=== PATIENT | female | born 1965 | race African-American/Black ===

== ENCOUNTER 2020-09-17 21:39 | Emergency (ER) | payer MEDICAID, OTHER ==
[~2020-09-17] VITALS: Ht 162.6 cm; Wt 60.8 kg
[2020-09-17 23:26] LABS: Alanine Aminotransferase 23 U/L (13-56); Albumin 3.1 g/dL (3.4-5.0); Anion Gap 6 (5-15); Aspartate Aminotransferase 14 U/L (15-37); BUN/Creatinine Ratio 16.9; Blood Urea Nitrogen 14 mg/dL (7-18); Calcium 8.8 mg/dL (8.5-10.1); Carbon Dioxide 24 mmol/L (21-32); Chloride 103 mmol/L (98-107); GFR African American 92 mL/min; GFR Non-African American 76 mL/min; Glucose 302 mg/dL (74-106); Potassium 3.8 mmol/L (3.5-5.1); Sodium 133 mmol/L (136-145)
[2020-09-17 23:27] LABS: Basophils # (auto) 0 10 ^3/uL (0-0.2); Basophils % (auto) 0.5 % (0.0-2.0); Eosinophils # (auto) 0 10 ^3/uL (0-0.8); Eosinophils % (auto) 0.2 % (0.0-7.0); Hematocrit 33.3 % (36.0-46.0); Hemoglobin 11.1 g/dL (12.2-16.2); Lymphocytes # (auto) 0.7 10 ^3/uL (0.4-5.4); Lymphocytes % (auto) 12.7 % (10.0-50.0); Mean Corpuscular Hemoglobin 27.8 pg (28.0-32.0); Mean Corpuscular Hgb Conc. 33.2 g/dL (32.0-36.0); Mean Corpuscular Volume 83.7 fL (80.0-100.0); Monocytes # (auto) 0.3 10 ^3/uL (0-1.3); Neutrophils # (auto) 4.4 10 ^3/uL (1.6-8.6); Neutrophils % (auto) 80.6 % (37.0-80.0); Nucleated Red Blood Cells % 0.1 %; Red Blood Cells 3.98 10^6/uL (4.0-5.20); Red Cell Distribution Width 13.9 % (11.8-14.3); White Blood Cell 5.5 10^3/uL (4.4-10.8)
[2020-09-17 23:27] LABS: Urine Bacteria NONE SEEN /hpf (None Seen); Urine Blood 3+ /uL (Negative); Urine Mucus FEW (None Seen); Urine Specific Gravity 1.027 (1.001-1.035); Urine WBC 5 /hpf (0 - 5)
[2020-09-17 23:33] LABS: Alkaline Phosphatase 82 U/L (45-117); Bilirubin, Total 0.4 mg/dL (0.2-1.0); Total Protein 7.7 g/dL (6.4-8.2)
[2020-09-18] MEDS ORDERED: SODIUM CHLORIDE 0.9% 1,000 ML IV ONE (02:00)
[2020-09-18] MEDS ORDERED: ONDANSETRON HCL 4 MG/2 ML VIAL IV ONE (02:00)
[2020-09-18] MEDS ORDERED: ACETAMINOPHEN 325 MG TAB PO ONE (02:30)
[2020-09-18] MEDS ORDERED: cloNIDine HCL 0.1 MG TAB PO ONE (03:30)
[2020-09-18 05:45] VITALS: BP 143/65
== END 2020-09-18 05:37 | disposition home or self-care (01) ==
LOC: ER 21:41
DX: K52.9 Noninfective gastroenteritis and colitis, unspecified (principal); E86.0 Dehydration; D25.9 Leiomyoma of uterus, unspecified; E11.65 Type 2 diabetes mellitus with hyperglycemia; I10 Essential (primary) hypertension
CPT/HCPCS: 36415; 70450; 74176; 80053; 81001; 83690; 84484; 85025; 85049; 93005; 96361; 96374; 99285; J2405

== ENCOUNTER 2023-05-20 21:50 | Inpatient (IN) | payer MEDICAID, OTHER ==
[~2023-05-20] VITALS: Ht 162.6 cm; Wt 60.4 kg
[2023-05-20] MEDS: cloNIDine HCL 0.1 MG TAB PO ONE (22:56)
[2023-05-20 23:25] LABS: Basophils # (auto) 0.1 10 ^3/uL (0-0.2); Eosinophils # (auto) 0.2 10 ^3/uL (0-0.8); Eosinophils % (auto) 3.4 % (0.0-7.0); Hematocrit 28.6 % (36.0-46.0); Hemoglobin 9.1 g/dL (12.2-16.2); Lymphocytes # (auto) 1.9 10 ^3/uL (0.4-5.4); Lymphocytes % (auto) 36.5 % (10.0-50.0); Mean Corpuscular Hemoglobin 27.1 pg (28.0-32.0); Mean Corpuscular Volume 84.7 fL (80.0-100.0); Monocytes # (auto) 0.4 10 ^3/uL (0-1.3); Monocytes % (auto) 7.5 % (0.0-12.0); Neutrophils # (auto) 2.6 10 ^3/uL (1.6-8.6); Neutrophils % (auto) 51.6 % (37.0-80.0); Red Blood Cells 3.37 10^6/uL (4.0-5.20); Red Cell Distribution Width 14.3 % (11.8-14.3); White Blood Cell 5.1 10^3/uL (4.4-10.8)
[2023-05-20 23:35] LABS: INR 1.01 (0.9-1.15); Partial Thromboplastin Time 27.6 SEC (24.5-34.5); Prothrombin Time 10.6 sec (9.3-11.8)
[2023-05-20 23:37] LABS: Alanine Aminotransferase 23 U/L (7-40); Albumin 3.1 g/dL (3.2-4.8); Alkaline Phosphatase 88 U/L (46-116); Anion Gap 6 (5-15); Aspartate Aminotransferase 27 U/L (13-40); BUN/Creatinine Ratio 8.2 (10.0-20.0); Bilirubin, Total 0.4 mg/dL (0.2-1.0); Blood Urea Nitrogen 25 mg/dL (9-23); Calcium 8.8 mg/dL (8.7-10.4); Carbon Dioxide 24 mmol/L (20-30); Chloride 107 mmol/L (98-107); Glucose 285 mg/dL (74-106); Magnesium 1.8 mg/dL (1.6-2.6); Potassium 3.9 mmol/L (3.5-5.1); Sodium 137 mmol/L (136-145); Total Protein 5.8 g/dL (5.7-8.2)
[2023-05-21] VITALS (9 sets, daily range): BP systolic 201; BP diastolic 98; PULSE 49–92; RESP 14–20; TEMP 98.3; O2SAT 96–100
[2023-05-21] MEDS ORDERED: DEXTROSE (50%) 50ML SYRG IV PRN (01:15)
[2023-05-21] MEDS ORDERED: DOCUSATE SOD 100 MG CAP PO PRN (01:15)
[2023-05-21] MEDS ORDERED: NITROGLYCERIN 0.4 MG SL TAB SL PRN (01:15)
[2023-05-21] MEDS ORDERED: MORPHINE SULFATE INJ 2 MG/ml SYRG IV PRN (01:15)
[2023-05-21] MEDS: SODIUM CHLORIDE 0.9% 1,000 ML IV SCH (05:16)
[2023-05-21] MEDS: ENOXAPARIN SOD 60 MG/0.6 ML SYRINGE SC ONE (05:44)
[2023-05-21] MEDS: ASPirin-EC 325mg tab PO ONE (05:44)
[2023-05-21] MEDS: FUROSEMIDE 40 MG/4 ML VIAL IV ONE (06:15)
[2023-05-21] MEDS: MORPHINE SULFATE INJ 2 MG/ml SYRG IV PRN (06:15)
[2023-05-21] MEDS: ONDANSETRON HCL 4 MG/2 ML VIAL IV PRN (06:16)
[2023-05-21] MEDS: LEVALBUTEROL HCL 1.25 MG/3 ML NEB NEB SCH (06:47)
[2023-05-21] MEDS: ACCU-CHEK COMFORT CURVE STRIP VI SCH (07:00)
[2023-05-21] MEDS: InsuLIN REG 1unit/0.01ml Soln (100units/ml) SC SCH ×2 (09:10→22:00)
[2023-05-21] MEDS: HEPARIN SODIUM (PORCINE) 5000 UNITS/ML 1ML VIAL IV SCH (10:02)
[2023-05-21 11:54] LABS: Chloride 108 mmol/L (98-107); Sodium 140 mmol/L (136-145)
[2023-05-21 11:56] LABS: Anion Gap 5 (5-15); Calcium 8.6 mg/dL (8.5-10.1); Carbon Dioxide 27 mmol/L (20-30)
[2023-05-21 12:01] LABS: BUN/Creatinine Ratio 9.4 (10.0-20.0); Blood Urea Nitrogen 26 mg/dL (9-23); Glucose 202 mg/dL (74-106)
[2023-05-21 12:35] LABS: % Iron Saturation 12.8 % (15-50)
[2023-05-21] MEDS ORDERED: HYDR12.59 PO (14:55)
[2023-05-21] MEDS ORDERED: LOSA25TA15 PO (14:55)
[2023-05-21] MEDS ORDERED: METF-370 PO (14:55)
[2023-05-21] MEDS ORDERED: GLYB2.5T8 PO (14:55)
[2023-05-21] MEDS: IRON SUCROSE COMPLEX 100 ML IV SCH (15:11)
[2023-05-21] MEDS: FUROSEMIDE 100 MG/10ML VIAL IV SCH (15:12)
[2023-05-21 15:19] LABS: Erythrocyte Sedimentation Rate 48 mm/hr (0-20)
[2023-05-21 17:13] LABS: Urine Bacteria NONE SEEN /hpf (None Seen); Urine Blood TRACE /uL (Negative); Urine Clarity Clear (Clear); Urine Color Colorless (Yellow); Urine Protein, UAD 2+ (Negative); Urine Specific Gravity 1.007 (1.001-1.035); Urine Urobilinogen Normal (Negative); Urine WBC 1 /hpf (0 - 5)
[2023-05-21 17:16] LABS: Protein, Urine 226.7 mg/dL (0.0-11.9)
[2023-05-21 17:19] LABS: Creatinine, Urine 35.25 mg/dL (30.0-125.0); Urine Protein/Creatinine Ratio 6.43
[2023-05-22] VITALS (15 sets, daily range): BP systolic 132–169; BP diastolic 60–86; PULSE 67–92; RESP 16–20; TEMP 97.7–98.6; O2SAT 94–100
[2023-05-22] MEDS: HYDROcodone-ACET 5/325MG TAB PO PRN (01:02)
[2023-05-22 06:11] LABS: Basophils # (auto) 0 10 ^3/uL (0-0.2); Eosinophils # (auto) 0.2 10 ^3/uL (0-0.8); Hematocrit 23.1 % (36.0-46.0); Hemoglobin 7.4 g/dL (12.2-16.2); Lymphocytes # (auto) 1.6 10 ^3/uL (0.4-5.4); Mean Corpuscular Hemoglobin 27.1 pg (28.0-32.0); Mean Corpuscular Hgb Conc. 32.3 g/dL (32.0-36.0); Monocytes # (auto) 0.5 10 ^3/uL (0-1.3); Nucleated Red Blood Cells % 0.1 %
[2023-05-22 06:13] LABS: Lymphocytes % (auto) 37.6 % (10.0-50.0); Mean Corpuscular Volume 83.9 fL (80.0-100.0); Monocytes % (auto) 11.8 % (0.0-12.0); Neutrophils # (auto) 1.9 10 ^3/uL (1.6-8.6); Neutrophils % (auto) 45.6 % (37.0-80.0); Red Blood Cells 2.75 10^6/uL (4.0-5.20); Red Cell Distribution Width 14.5 % (11.8-14.3); White Blood Cell 4.2 10^3/uL (4.4-10.8)
[2023-05-22 06:30] LABS: Alanine Aminotransferase 17 U/L (7-40); Albumin 2.8 g/dL (3.2-4.8); Alkaline Phosphatase 73 U/L (46-116); Anion Gap 6 (5-15); Aspartate Aminotransferase 23 U/L (13-40); BUN/Creatinine Ratio 10.4 (10.0-20.0); Bilirubin, Total 0.2 mg/dL (0.2-1.0); Blood Urea Nitrogen 34 mg/dL (9-23); Calcium 8.6 mg/dL (8.5-10.1); Carbon Dioxide 28 mmol/L (20-30); Chloride 109 mmol/L (98-107); Glucose 87 mg/dL (74-106); Potassium 3.8 mmol/L (3.5-5.1); Sodium 143 mmol/L (136-145); Total Protein 4.9 g/dL (5.7-8.2)
[2023-05-22 08:07] LABS: Complement C3 124 mg/dL (82-167)
[2023-05-22] MEDS ORDERED: PNEUMOCOCCAL VACC POLYS 25 MCG/0.5 ML VIAL IM SCH (10:00)
[2023-05-22 13:06] LABS: Anti-Centromere B Antibody <0.2 AI (0.0-0.9); Anti-Jo-1 Antibody <0.2 AI (0.0-0.9); Anti-dsDNA Antibody <1 IU/mL (0-9); Antichromatin Antibody <0.2 AI (0.0-0.9); Antiscleroderma-70 Antibody <0.2 AI (0.0-0.9); RNP Antibody <0.2 AI (0.0-0.9); Sjogren's Anti-SS-A Antibody <0.2 AI (0.0-0.9); Sjogren's Anti-SS-B Antibody <0.2 AI (0.0-0.9); Smith Antibody <0.2 AI (0.0-0.9)
[2023-05-22] MEDS: hydrALAZINE HCL 20 MG/ML VL IV PRN (13:35)
[2023-05-22 14:08] LABS: LDL Cholesterol 141 mg/dL (< 100); Triglycerides 88 mg/dL (< 150)
[2023-05-22 14:09] LABS: HDL Cholesterol 51 mg/dL (40-59)
[2023-05-22 14:10] LABS: Cholesterol 216 mg/dL (< 200)
[2023-05-22] MEDS: ERGOCALCIFEROL 50,000 UNIT(1.25MG) CAP PO SCH (18:22)
[2023-05-22] MEDS: ACETAMINOPHEN 325 MG TAB PO PRN (20:27)
[2023-05-22] MEDS: CARVEDILOL 3.125 MG TAB PO SCH (20:40)
[2023-05-22] MEDS: EPOETIN ALFA-EPBX 10,000 UNIT/1ML VIAL SC ONE (22:23)
[2023-05-23] VITALS (9 sets, daily range): BP systolic 141–191; BP diastolic 77–95; PULSE 62–92; RESP 16–20; TEMP 36.7; O2SAT 95–100
[2023-05-23] MEDS: LABETALOL HCL 200 MG TAB PO PRN (05:04)
[2023-05-23 07:06] LABS: Basophils # (auto) 0 10 ^3/uL (0-0.2); Basophils % (auto) 0.6 % (0.0-2.0); Eosinophils # (auto) 0.2 10 ^3/uL (0-0.8); Eosinophils % (auto) 5.2 % (0.0-7.0); Hemoglobin 7.4 g/dL (12.2-16.2); Lymphocytes # (auto) 1.2 10 ^3/uL (0.4-5.4); Lymphocytes % (auto) 34.6 % (10.0-50.0); Mean Corpuscular Hemoglobin 26.7 pg (28.0-32.0); Mean Corpuscular Hgb Conc. 32.2 g/dL (32.0-36.0); Mean Corpuscular Volume 82.9 fL (80.0-100.0); Monocytes # (auto) 0.4 10 ^3/uL (0-1.3); Monocytes % (auto) 10.3 % (0.0-12.0); Neutrophils # (auto) 1.7 10 ^3/uL (1.6-8.6); Neutrophils % (auto) 49.3 % (37.0-80.0); Nucleated Red Blood Cells % 0.1 %; Red Blood Cells 2.77 10^6/uL (4.0-5.20); Red Cell Distribution Width 14.5 % (11.8-14.3); White Blood Cell 3.5 10^3/uL (4.4-10.8)
[2023-05-23 07:14] LABS: Chloride 108 mmol/L (98-107); Sodium 140 mmol/L (136-145)
[2023-05-23 07:15] LABS: Anion Gap 5 (5-15); Calcium 8.7 mg/dL (8.5-10.1); Carbon Dioxide 27 mmol/L (20-30)
[2023-05-23 07:20] LABS: BUN/Creatinine Ratio 11.9 (10.0-20.0); Blood Urea Nitrogen 34 mg/dL (9-23); Glucose 91 mg/dL (74-106)
[2023-05-23] MEDS: HEPARIN SODIUM (PORCINE) 5000 UNITS/ML 1ML VIAL SC SCH (09:33)
[2023-05-23] MEDS: CARVEDILOL 12.5 MG TAB PO SCH (09:34)
[2023-05-23] MEDS: amLODIPine BESYLATE 5 MG TAB PO SCH (11:26)
[2023-05-23] MEDS ORDERED: HYDR25TA87 PO (15:54)
[2023-05-23] MEDS ORDERED: BLOO1KIT XX (15:54)
[2023-05-23] MEDS ORDERED: INSREGI SC (15:54)
[2023-05-23] MEDS ORDERED: CAR125T PO (15:54)
[2023-05-23] MEDS ORDERED: LANC-347 XX (15:54)
[2023-05-23] MEDS ORDERED: [UNRECOGNIZED DRUG - CODE] XX (15:54)
[2023-05-23] MEDS: INFLUENZA QUAD 2023-2024 0.5 ML SYRG IM ONE (16:32)
[2023-05-23 18:06] LABS: Antimyeloperoxidase (MPO) Ab <0.2 units (0.0-0.9); Antiproteinase 3 (PR-3) Ab <0.2 units (0.0-0.9)
[2023-05-24 13:07] LABS: Cytoplasmic (C-ANCA) <1:20 titer (Neg:<1:20); Perinuclear (P-ANCA) <1:20 titer (Neg:<1:20)
== END 2023-05-23 18:49 | disposition home health service (06) | DRG 199 ==
LOC: ER 21:50 → TELE 05-21 01:18 → TELE-CENTR 05-21 23:38
PROVIDERS: ADMIT Nurse Practitioner; ATTEND Nurse Practitioner
DX: I16.0 Hypertensive urgency (principal); N17.0 Acute kidney failure with tubular necrosis; I21.A1 Myocardial infarction type 2; I50.23 Acute on chronic systolic (congestive) heart failure; J90 Pleural effusion, not elsewhere classified; E11.22 Type 2 diabetes mellitus with diabetic chronic kidney disease; D50.9 Iron deficiency anemia, unspecified; E11.65 Type 2 diabetes mellitus with hyperglycemia; I34.0 Nonrheumatic mitral (valve) insufficiency; N25.81 Secondary hyperparathyroidism of renal origin; I13.0 Hypertensive heart and chronic kidney disease with heart failure and stage 1 through stage 4 chronic kidney disease, or unspecified chronic kidney disease; I37.1 Nonrheumatic pulmonary valve insufficiency; N18.9 Chronic kidney disease, unspecified; Z83.3 Family history of diabetes mellitus; Z91.199 Patient's noncompliance with other medical treatment and regimen due to unspecified reason; Z79.4 Long term (current) use of insulin
CPT/HCPCS: 36415; 71045; 76775; 80048; 80053; 80061; 81001; 82306; 82570; 82728; 82962; 83036; 83516; 83520; 83540; 83550; 83735; 83880; 83970; 84100; 84156; 84484; 85025; 85610; 85652; 85730; 86160; 86225; 86235; 86256; 93005; 93306; 94640; 99291; G0378; J1756; J1815; J2405